=== PATIENT | female | born 1965 | race Caucasian/White ===

== ENCOUNTER 2020-03-12 16:30 | Inpatient (IN) ==
[2020-03-12] MEDS ORDERED: NS 0.9% 1000 ml BAG 1,000 ML IV ONE ×2 (16:47→19:52)
[2020-03-12] MEDS ORDERED: Levalbuterol 1.25MG/0.5ML NEB.SOL INH ONE (16:49)
[2020-03-12] MEDS ORDERED: Levalbuterol 1.25MG/0.5ML NEB.SOL ONE (16:51)
[2020-03-12] MEDS: Albuterol/Ipratropium NEB.SOL (2.5/0.5 MG) 3 ML NEB.SOLN INH ONE ×2 (16:56→19:15)
[2020-03-12] MEDS ORDERED: Iohexol 350 (CONTRAST) 500 ML MDV IV ONE (16:58)
[2020-03-12 17:31] LABS: Ammonia 39 mcmol/L (16-53)
[2020-03-12 18:17] LABS: Hematocrit 53 % (35-47); Hemoglobin 17.5 g/dL (12.0-16.0); Mean Corpuscular HGB Conc 33 g/dL (31-36); Mean Corpuscular Hemoglobin 30 pg (27-31); Mean Corpuscular Volume 91 fL (80-97); Platelet Count 204 10^3/uL (150-450); Red Blood Count 5.78 10^6 /uL (3.70-4.87); Red Cell Distribution Width 14 % (10-15); White Blood Count 12.5 10^3/uL (3.5-10.8)
[2020-03-12 18:33] LABS: BNP 23 pg/mL (<=100)
[2020-03-12 18:43] LABS: Influenza A Molecular Negative (Negative); Influenza B Molecular Negative (Negative)
[2020-03-12] MEDS: Levalbuterol 1.25MG/0.5ML NEB.SOL INH ONE ×3 (18:47→19:18)
[2020-03-12] MEDS ORDERED: cefTRIAXone 1 gm/50 mL NS BAG 1 GM/50 ML BAG IV ONE (19:52)
[2020-03-12] MEDS ORDERED: Magnesium Sulfate 2 gm BAG 2 GM/50 ML BAG IVPB ONE (22:45)
[2020-03-13] MEDS: Levalbuterol 1.25MG/0.5ML NEB.SOL INH PRN ×6 (00:22→20:00)
[2020-03-13] MEDS ORDERED: Mometasone 220 MCG MDI INH SCH (01:00)
[2020-03-13] MEDS: Heparin 5000 UNITS/ML 1 mL VIAL SUBCUT SCH ×4 (01:29→22:56)
[2020-03-13 10:47] LABS: ABS Basophils 0.1 10^3/ul (0-0.2); ABS Eosinophils 1.5 10^3/ul (0-0.6); ABS Monocytes 0.4 10^3/ul (0-0.8); ABS Neutrophils 4.5 10^3/ul (1.5-7.7); Eosinophil % 17.3 %; Hematocrit 47 % (35-47); Hemoglobin 15.9 g/dL (12.0-16.0); Lymphocyte % 23.8 %; Mean Corpuscular HGB Conc 34 g/dL (31-36); Mean Corpuscular Hemoglobin 31 pg (27-31); Mean Corpuscular Volume 90 fL (80-97); Mean Platelet Volume 9.3 fL (7.4-10.4); Platelet Count 162 10^3/uL (150-450); Red Blood Count 5.18 10^6 /uL (3.70-4.87); Red Cell Distribution Width 13 % (10-15); White Blood Count 8.4 10^3/uL (3.5-10.8)
[2020-03-13 11:03] LABS: BUN/Creatinine Ratio 18.3 (8-20); Calcium 9.3 mg/dL (8.6-10.3); EGFR African American 125.6 (>60); EGFR Non-African American 103.8 (>60); Potassium 3.8 mmol/L (3.5-5.0)
[2020-03-13] MEDS: Mometasone/Formoter 200/5 MDI INH SCH ×2 (11:51→19:43)
[2020-03-13] MEDS ORDERED: cefTRIAXone 1 gm/50 mL NS BAG 1 GM/50 ML BAG IVPB SCH (18:00)
[2020-03-14] MEDS: Levalbuterol 1.25MG/0.5ML NEB.SOL INH PRN ×2 (03:20→08:12)
[2020-03-14] MEDS: Heparin 5000 UNITS/ML 1 mL VIAL SUBCUT SCH (05:40)
[2020-03-14 07:27] VITALS: BP 126/62
[2020-03-14] MEDS: Mometasone/Formoter 200/5 MDI INH SCH (07:59)
== END 2020-03-14 10:10 | disposition home or self-care (01) | DRG 141 ==
LOC: ED 16:30 → MED 22:30
PROVIDERS: ADMIT Internal Medicine; ATTEND Student in an Organized Health Care Education/Training Program